=== PATIENT | female | born 1935 | race Caucasian/White ===

== ENCOUNTER 2016-06-06 14:32 | Emergency (ER) | payer OTHER ==
[~2016-06-06] VITALS: Ht 157.5 cm; Wt 76.0 kg
[~2016-06-06 14:32] MED LIST: ATEN-102 PO; CIPR500T4 PO; FLAG500T PO; HYDR-2768 PO; IBUP-232 PO; NORV5TAB PO; POTA-243 PO
[2016-06-06 14:37] VITALS: BP 172/81; PULSE 58; RESP 16; TEMP 97.9; O2SAT 95
[2016-06-06] MEDS ORDERED: ACETAMINOPHEN/HYDROcodone 325 MG/5 MG TAB PO ONE (15:00)
--- NOTE | 2016-06-06 15:07 | PD ---
HPI Chief Complaint: Injury Time Seen by Provider: 14:57 Travel History International Travel<30 days: No Contact w/Intl Traveler<30days: No Traveled to known affect area: No History of Present Illness HPI 81 year old female with PMH of HTN and hypothyroidism presents to the ED for evaluation ~2 hours following mechanical fall. The patient states that she tripped over a curb in [facility], fell with her right arm outstretched and her left twisted beneath her. She endorse hitting her face, denies LOC. She was ambulatory nearly immediately following the fall. She was evaluated by EMS at [facility] shortly after the incident and told that she should have more evaluation. On presentation she complains of 9/10 right elbow pain, worse with attempted ROM. She denies headache, dizziness, vision changes, facial pain, difficulties breathing, difficulty swallowing, chest pain, palpitations, shortness of breath, abdominal pain, nausea, vomiting, numbness, tingling, weakness, limitation to range of motion of the other extremities. PFSH Past Medical History Hx Anticoagulant Therapy: No Hypertension: Yes Thyroid Disease: Yes Dilation and Curettage (D&C): Yes Past Surgical History Abdominal Surgery: Yes (laproscopy) Social History Alcohol Use: No Tobacco Use: No Substance Use: No Allergies-Medications (Allergen,Severity, Reaction): Coded Allergies: No Known Allergies (Unverified , 06/06/16) Reported Meds & Prescriptions Reported Meds & Active Scripts Active Lortab (Hydrocodone-Acetaminophen) 5-325 Mg Tab 1 Tab PO Q6H PRN Naproxen 500 Mg Tab 500 Mg PO BID Reported Levothyroxine (Levothyroxine Sodium) Unknown Strength Tab Unknown Dose PO DAILY K-Tab (Potassium Chloride) 20 Meq Tab 20 Meq PO DAILY Amlodipine (Amlodipine Besylate) Unknown Strength Tab Unknown Dose PO HS Atenolol 50 Mg Tab 50 Mg PO DAILY Review of Systems Except as stated in HPI: all other systems reviewed are Neg Physical Exam Narrative GENERAL: Well-nourished, well-developed white female in no acute distress. Sitting up on the stretcher, alert and oriented 5. SKIN: Warm and dry. There is a 1-2 cm abrasion on the anterior aspect of the left knee. Thorough evaluation reveals no other edema, ecchymosis, abrasion, or laceration of the skin. HEAD: Normocephalic. Atraumatic. No raccoon eyes or way sign. No tenderness to palpation of the skull or facial bones. No bony step-offs. No malocclusion of the teeth. EYES: No scleral icterus. No injection or drainage. PERRLA. EOMI. ENT: Pearly pacheco tympanic membrane is bilaterally. Nasal mucosa is moist. Oropharynx without erythema, edema or exudate. NECK: Supple, trachea midline. No JVD or lymphadenopathy. No midline tenderness to palpation. Patient retains full, active, painless range of motion of the neck. CARDIOVASCULAR: Regular rate and rhythm without murmurs, gallops, or rubs. 2+ DP and radial pulses bilaterally. RESPIRATORY: Breath sounds clear and equal bilaterally. No accessory muscle use. GASTROINTESTINAL: Abdomen soft, non-tender, nondistended. + Bowel sounds MUSCULOSKELETAL: No cyanosis, or edema. No tenderness to palpation or limitations to range of motion of the joints of the lower extremities bilaterally. No TTP or limitations to ROM of the joints of the right upper extremity. FOCUSED LEFT UPPER EXTREMITY EXAM: Patient is holding the left arm in 90 flexion at the elbow. There is an ice pack wrapped with gauze on the elbow. No TTP or limitations to ROM of the left shoulder. The patient is tender to palpation of the head of the radius as well as the condyles of the humerus. No snuffbox tenderness. Attempted extension of the arm elicits pain. Attempted flexion and extension of the wrist elicits pain. Strong geotechnical engineer strength. Strong finger to thumb opposition. 2+ radial pulse. Sensation intact to light touch distally. Cap refill less than 2 seconds. NEUROLOGICAL: Awake and alert. Cranial nerves II through XII intact. Motor and sensory grossly within normal limits. 5/5 muscle strength in all muscle groups. Normal speech. BACK: Nontender without obvious deformity. No CVA tenderness. No midline tenderness. Data Data Last Documented VS Vital Signs Date Time Temp Pulse Resp B/P Pulse Ox O2 Delivery O2 Flow Rate FiO2 06/06/16 14:59 16 96 Room Air 06/06/16 14:37 97.9 58 172/[address] Brain W/O Iv Contrast(Rout) (06/06/16 14:53) Ct Facial Bones W/O Iv Cont (06/06/16 14:53) Elbow, Complete (4 Vws) (06/06/16 14:53) Wrist, Complete (Oiz6ikl) (06/06/16 14:53) Ice/Cold Pack (06/06/16 14:53) Acetamin-Hydrocod 325-5 Mg ([place] 5-325 (06/06/16 15:00) Tetanus/Diphtheria Tox Adult (Tetanus/Di (06/06/16 15:15) Support Splint (06/06/16 15:28) MDM Medical Decision Making Medical Screen Exam Complete: Yes Emergency Medical Condition: Yes Differential Diagnosis Humeral fracture versus radial fracture versus ulnar fracture versus facial fracture versus skull fracture versus ICH versus other Narrative Course 81 year old female with PMH of HTN and hypothyroidism presents to the ED for evaluation ~2 hours following mechanical fall. The patient states that she tripped over a curb in [facility], fell with her right arm outstretched and her arm left twisted beneath her. She endorse hitting her head and face, denies LOC. On presentation she complains of 9/10 right elbow pain, worse with attempted ROM. She denies headache, dizziness, vision changes, facial pain, difficulties breathing, difficulty swallowing, chest pain, palpitations, shortness of breath , abdominal pain, nausea, vomiting, numbness, tingling, weakness, limitation to range of motion of the other extremities. She was ambulatory nearly immediately following the fall. Vitals reviewed. Physical exam reveals an alert and oriented white female, appearing younger than her stated age, in no acute distress. Positive physical findings include a 1-2 cm abrasion of the anterior aspect of the left knee. A chisel and left arm in 90 flexion at the elbow. Tender to palpation ahead of the radius as well as condyles of the humerus. Attempted extension of the arm elicits pain. Attempted flexion and extension of left wrist elicits pain. Neurovascularly intact. No focal neural deficits. The patient's tetanus immunization was updated. She was administered 5 mg Lortab. X-ray left wrist: no acute fracture X-ray left elbow: suspected nondisplaced radial head fracture CT of the brain: Nonspecific white matter changes, no acute intracranial abnormality. CT of the facial bones: Facial soft tissue swelling without fracture. All results per radiology read. The patient was placed in a left arm sling. She was provided a prescription for Naproxen 500 mg twice a day and a short course of 5 mg Lortab as needed for pain 6 through 10 on the pain scale. She is instructed to wear the sling unless showering until cleared by the orthopedist. She was referred to the on-call orthopedist, Dr. Bergeron. She is instructed to rest, hydrate, return to normal, gentle activities as tolerated, follow up as discussed. She indicated understanding of instructions and is amenable to the plan of care. She stable and discharged home. Diagnosis Primary Impression: Fracture of radial head, left, closed Qualified Code: S52.125A - Closed nondisplaced fracture of head of left radius , initial encounter Additional Impression: Slipping, tripping and stumbling without falling due to stepping from one level to another, initial encounter Referrals: Dank Bergeron Jr., MD Primary Care Physician Patient Instructions: Elbow Fracture in Adults (ED), General Instructions Additional Instructions: Rest, hydrate. Keep the arm in the sling unless showering until cleared by the orthopedist ( Dr. Bergeron.) Resume normal, gentle activities as tolerated. No strenuous physical activities for the next few days Take Naproxen as prescribed. Take Lortab as needed for pain 6-10 on the pain scale. Do not drive while taking LORTAB. Applying ice or heat to areas with sore muscles may help to improve your patient. Do not apply ice/ heat for longer than 20 m/h. Follow-up with the orthopedist on Thursday. Return to the ED for any urgent or emergent medical condition. Med/Other Pt SpecificInfo: Prescription(s) given Scripts Hydrocodone-Acetaminophen (Lortab)5-325 Mg Tab1 Tab PO Q6H PRN (PAIN) #10 TAB Ref 0 Prov:Jenny Crouch MD 06/06/16 Naproxen 500 Mg Nag594 Mg PO BID #20 TAB Ref 0 Prov:Jenny Crouch MD 06/06/16 Disposition: 01 DISCHARGE HOME Condition: Stable Mireille Ashby Jun 06, 2016 15:07
[2016-06-06] MEDS ORDERED: AMLO2.5T PO (15:10)
[2016-06-06] MEDS ORDERED: LEVO25TA4 PO (15:10)
[2016-06-06] MEDS ORDERED: POTA1TAB4 PO (15:10)
[2016-06-06] MEDS ORDERED: ATEN50TA PO (15:10)
[2016-06-06] MEDS ORDERED: TETANUS/DIPHTHERIA TOXOID ADULT 0.5 ML VIAL IM ONE (15:15)
--- NOTE | 2016-06-06 15:18 | RADHPO ---
EXAM DATE/TIME: 06/06/2016 15:03 [facility] COMPARISON: No previous studies available for comparison. INDICATIONS : Left elbow pain post fall. MEDICAL HISTORY : None. SURGICAL HISTORY : None. ENCOUNTER: Initial ACUITY: 1 day PAIN SCORE: 9/10 LOCATION: Left upper extremity FINDINGS: Multiple view examination of the left elbow demonstrates joint effusion and suspected nondisplaced ra dial head fracture. No other fractures. Soft tissue swelling. Bony mineralization is normal. CONCLUSION: 1. Suspected nondisplaced radial head fracture. Kyle López MD on June 06, 2016 at 15:15 Board Certified Radiologist. This report was verified electronically.
--- NOTE | 2016-06-06 15:31 | RADHPO ---
EXAM DATE/TIME: 06/06/2016 15:01 [facility] COMPARISON: No previous studies available for comparison. INDICATIONS : Left wrist pain post fall. MEDICAL HISTORY : None. SURGICAL HISTORY : None. ENCOUNTER: Initial ACUITY: 1 day PAIN SCORE: 9/10 LOCATION: Left upper extremity FINDINGS: Three view examination of the left wrist demonstrates soft tissue swelling without fracture. The car pal bones are in normal alignment. The joint spaces are maintained. Bony mineralization is normal. CONCLUSION: No acute fracture. Kyle López MD on June 06, 2016 at 15:29 Board Certified Radiologist. This report was verified electronically.
[2016-06-06] MEDS ORDERED: NAPR500T PO (15:39)
[2016-06-06] MEDS ORDERED: HYDR-3533 PO (15:42)
--- NOTE | 2016-06-06 16:04 | RADHPO ---
EXAM DATE/TIME: 06/06/2016 15:32 [facility] COMPARISON: No previous studies available for comparison. INDICATIONS : Mechanical fall. Mid head and facial trauma. RADIATION DOSE: 57.8 CTDIvol (mGy) MEDICAL HISTORY : Hypertension. Thyroid disease. SURGICAL HISTORY : None. ENCOUNTER: Initial ACUITY: 1 day PAIN SCALE: 7/10 LOCATION: frontal TECHNIQUE: Multiple contiguous axial images were obtained of the head. Using automated exposure control and adj ustment of the mA and/or kV according to patient size, radiation dose was kept as low as reasonably a chievable to obtain optimal diagnostic quality images. FINDINGS: CEREBRUM: Scattered areas of low attenuation throughout the white matter. The ventricles are normal for age. N o evidence of midline shift, mass lesion, hemorrhage or acute infarction. No extra-axial fluid colle ctions are seen. POSTERIOR FOSSA: The cerebellum and brainstem are intact. The 4th ventricle is midline. The cerebellopontine angle i s unremarkable. EXTRACRANIAL: The visualized portion of the orbits is intact. SKULL: The calvaria is intact. No evidence of skull fracture. CONCLUSION: Nonspecific white matter changes. No acute intracranial abnormality. Kyle López MD on June 06, 2016 at 16:02 Board Certified Radiologist. This report was verified electronically.
--- NOTE | 2016-06-06 16:09 | RADHPO ---
EXAM DATE/TIME: 06/06/2016 15:32 [facility] COMPARISON: No previous studies available for comparison. INDICATIONS : Mechanical fall. Mid head and facial trauma. RADIATION DOSE: 35.4 CTDIvol (mGy) MEDICAL HISTORY : Hypertension. Thyroid disease. SURGICAL HISTORY : None. ENCOUNTER: Initial ACUITY: 1 day PAIN SCORE: 8/10 LOCATION: facial TECHNIQUE: Volumetric scanning of the facial bones was performed. Using automated exposure control and adjustme nt of the mA and/or kV according to patient size, radiation dose was kept as low as reasonably achiev able to obtain optimal diagnostic quality images. FINDINGS: ORBITS: The orbital and infraorbital osseous structures are intact. The retroconal structures have a normal configuration. No radiopaque foreign bodies are seen. NASAL BONE: The nasal bone and maxillary spine are intact ZYGOMATIC ARCHES: Symmetric without evidence of fracture. SINUSES: Mucoperiosteal thickening seen throughout the maxillary and ethmoid sinuses. Fluid within the left sp henoid and left maxillary sinus. NASAL CAVITY: The nasal septum is intact and midline. The lacrimal ducts are intact. SOFT TISSUES: No radiopaque foreign bodies seen. Facial soft-tissue swelling is seen. INTRACRANIAL: No intracranial air seen. CRIBIFORM PLATE: Grossly intact. CONCLUSION: 1. Facial soft tissue swelling. 2. No facial fracture. 3. Diffuse sinus disease. Kyle López MD on June 06, 2016 at 16:03 Board Certified Radiologist. This report was verified electronically.
== END 2016-06-06 16:43 | disposition home or self-care (01) ==
LOC: PHEFT 14:32
DX: S52.125A Nondisplaced fracture of head of left radius, initial encounter for closed fracture (principal); I10 Essential (primary) hypertension; E03.9 Hypothyroidism, unspecified; Z23 Encounter for immunization; W01.0XXA Fall on same level from slipping, tripping and stumbling without subsequent striking against object, initial encounter
CPT/HCPCS: 70450; 70486; 73080; 73110; 90471; 90714